=== PATIENT | male | born 1985 | race Caucasian/White ===

== ENCOUNTER 2016-11-19 15:15 | Emergency (ER) | payer OTHER ==
[~2016-11-19] VITALS: Ht 172.7 cm; Wt 81.6 kg
[~2016-11-19 15:15] MED LIST: 'PARAFON FORTE500 M1 PO; AMOXIL500 MG PO; DELTASONE20 MG PO; HYDROCODONE BIT1 T11 PO; IBU-8800 MG PO; KEFLEX500 MG PO; LEVOFLOXACIN500 MG PO; MEDROL DOSEPAK4 MG PO; NAPROSYN500 MG PO; PEPCID20 MG PO; PERCOCET 325 MG1 TA7 PO; TYLENOL W/CODEI1 TA2 PO; VICODIN ES 7501 TAB PO
[2016-11-19] MEDS ORDERED: ZUBSOLV 5.7-1.1 EACH SL (15:25)
[2016-11-19] MEDS ORDERED: CYCLOBENZAPRINE10 MG PO (17:08)
[2016-11-19] MEDS ORDERED: ZOFRAN ODT4 MG SL (17:14)
== END 2016-11-19 17:32 | disposition home or self-care (01) ==
LOC: ED 15:15
DX: S13.9XXA Sprain of joints and ligaments of unspecified parts of neck, initial encounter (principal); Z91.018 Allergy to other foods; Z79.899 Other long term (current) drug therapy; V89.2XXA Person injured in unspecified motor-vehicle accident, traffic, initial encounter; Y93.89 Activity, other specified; Y92.413 State road as the place of occurrence of the external cause; Y99.9 Unspecified external cause status

== ENCOUNTER → 2016-12-25 | Outpatient (CLI) | payer OTHER ==
[~2016-12-25] MED LIST changes: +CYCLOBENZAPRINE10 MG PO; +ZOFRAN ODT4 MG SL; +ZUBSOLV 5.7-1.1 EACH SL
[2016-12-25 10:55] LABS: BASO % 0.5 % (0.0-1.0); EOS # 0.1 10*3/uL (0.0-0.4); EOS % 1.9 % (1.0-4.0); HEMATOCRIT 45.1 % (42.0-52.0); HEMOGLOBIN 15.5 g/dl (14.0-18.0); LYMPH # 1.7 10*3/uL (1.3-4.4); LYMPH % 41.7 % (27.0-41.0); MEAN CELL VOLUME 82.3 fl (80.0-94.0); MEAN CORPUSCULAR HGB 28.3 pg (27.0-31.0); MEAN CORPUSCULAR HGB CONC 34.4 g/dl (33.0-37.0); MEAN PLATELET VOLUME 10.1 fl (9.6-12.3); MONO # 0.2 10*3/uL (0.1-1.0); MONO % 5.3 % (3.0-9.0); NEUT # 2.1 10*3/uL (2.3-7.9); NEUT % 50.4 % (47.0-73.0); PLATELET COUNT AUTOMATED 204 10*3/uL (130-400); RED BLOOD COUNT 5.48 10*6/uL (4.50-5.90); WHITE BLOOD COUNT 4.2 10*3/uL (4.8-10.8)
[2016-12-25 11:31] LABS: ALBUMIN 4.1 gm/dl (3.1-4.5); ALKALINE PHOSPHATASE 98 U/L (45-117); BILIRUBIN, DIRECT 0.1 mg/dL (0.0-0.2); BILIRUBIN, TOTAL 0.5 mg/dl (0.2-1.0); BUN 15 mg/dl (7-24); CARBON DIOXIDE 28 mmol/L (21-32); CHLORIDE 108 mmol/L (98-107); EST GLOM FILT AFRICAN AMERICAN > 60 ml/min; GLUCOSE 97 mg/dL (65-99); IRON 112 ug/dL (65-175); IRON SATURATION 35 %; POTASSIUM 3.8 mmol/L (3.5-5.1); SGOT/AST 70 IU/L (3-35); SGPT/ALT 99 U/L (12-78); SODIUM 141 mmol/L (136-145); TOTAL PROTEIN 7.8 gm/dL (6.4-8.2); UIBC 205 ug/dL (110-410)
[2016-12-26 07:05] LABS: HEPATITIS B SURFACE AB 006395 Reactive (.)
[2016-12-26 08:12] LABS: HIV 1+2 AB + HIV1 P24 AG Non Reactive (Non Reactive); TRANSFERRIN 004937 259 mg/dL (200-370)
[2016-12-26 21:09] LABS: HEPATITIS C QNT 1120000 IU/mL (.)
[2016-12-27 14:11] LABS: HCV REFLEX CHARGE CHG; HEPATITIS C GENOTYPE 2b (.)
== END | disposition home or self-care (01) ==
LOC: LAB 10:24
PROVIDERS: Physician Assistant
DX: K73.2 Chronic active hepatitis, not elsewhere classified (principal)

== ENCOUNTER 2020-05-26 05:56 | Observation (INO) | payer OTHER ==
[~2020-05-26] VITALS: Ht 172.7 cm; Wt 77.1 kg
[2020-05-26 06:00] VITALS: BP 143/80
[2020-05-26 06:31] LABS: BASO % 0.4 % (0.0-1.0); EOS # 0.1 10*3/uL (0.0-0.4); EOS % 1.8 % (1.0-4.0); HEMATOCRIT 46.6 % (42.0-52.0); LYMPH # 2.4 10*3/uL (1.3-4.4); LYMPH % 30.9 % (27.0-41.0); MEAN CELL VOLUME 82.2 fl (80.0-94.0); MEAN CORPUSCULAR HGB 27.7 pg (27.0-31.0); MEAN CORPUSCULAR HGB CONC 33.7 g/dl (33.0-37.0); MEAN PLATELET VOLUME 9.8 fl (9.6-12.3); MONO # 0.5 10*3/uL (0.1-1.0); MONO % 6.5 % (3.0-9.0); NEUT # 4.7 10*3/uL (2.3-7.9); NEUT % 60.1 % (47.0-73.0); PLATELET COUNT AUTOMATED 223 10*3/uL (130-400); RED BLOOD COUNT 5.67 10*6/uL (4.50-5.90); RED CELL DISTRI WIDTH 11.7 % (0-14.5); WHITE BLOOD COUNT 7.8 10*3/uL (4.8-10.8)
[2020-05-26 06:47] LABS: ALBUMIN 4.4 gm/dl (3.1-4.5); ALKALINE PHOSPHATASE 73 U/L (45-117); BUN 16 mg/dl (7-24); CHLORIDE 110 mmol/L (98-107); CREATININE 1.03 mg/dL (0.70-1.30); LIPASE 238 U/L (73-393); POTASSIUM 3.4 mmol/L (3.5-5.1); SGOT/AST 15 IU/L (3-35); SGPT/ALT 22 U/L (12-78); SODIUM 141 mmol/L (136-145); TOTAL PROTEIN 7.5 gm/dL (6.4-8.2)
[2020-05-26 08:57] VITALS: BP 114/86
[2020-05-26 11:51] VITALS: BP 123/68
[2020-05-26 20:00] VITALS: BP 115/66
[2020-05-27] VITALS: BP 115/73
[2020-05-27 06:49] LABS: ALBUMIN 3.5 gm/dl (3.1-4.5); ALKALINE PHOSPHATASE 71 U/L (45-117); BUN 10 mg/dl (7-24); CHLORIDE 108 mmol/L (98-107); CREATININE 0.93 mg/dL (0.70-1.30); POTASSIUM 4.2 mmol/L (3.5-5.1); SGOT/AST 35 IU/L (3-35); SGPT/ALT 29 U/L (12-78); SODIUM 139 mmol/L (136-145); TOTAL PROTEIN 6.7 gm/dL (6.4-8.2)
[2020-05-27 07:01] LABS: BASO % 0.2 % (0.0-1.0); EOS # 0.1 10*3/uL (0.0-0.4); HEMATOCRIT 43.7 % (42.0-52.0); LYMPH # 1.8 10*3/uL (1.3-4.4); LYMPH % 14.8 % (27.0-41.0); MEAN CELL VOLUME 83.6 fl (80.0-94.0); MEAN CORPUSCULAR HGB 28.1 pg (27.0-31.0); MEAN CORPUSCULAR HGB CONC 33.6 g/dl (33.0-37.0); MEAN PLATELET VOLUME 10.5 fl (9.6-12.3); MONO # 1.1 10*3/uL (0.1-1.0); MONO % 8.8 % (3.0-9.0); NEUT % 74.9 % (47.0-73.0); PLATELET COUNT AUTOMATED 196 10*3/uL (130-400); RED BLOOD COUNT 5.23 10*6/uL (4.50-5.90); RED CELL DISTRI WIDTH 11.8 % (0-14.5)
[2020-05-27 08:00] VITALS: BP 110/59
[2020-05-27 12:00] VITALS: BP 126/63
[2020-05-27 16:00] VITALS: BP 136/63
[2020-05-27 20:00] VITALS: BP 125/75
[2020-05-28] VITALS (8 sets, daily range): BP systolic 113–137; BP diastolic 66–82
[2020-05-28 06:43] LABS: BASO % 0.1 % (0.0-1.0); EOS # 0.1 10*3/uL (0.0-0.4); EOS % 0.8 % (1.0-4.0); HEMATOCRIT 42.3 % (42.0-52.0); LYMPH # 1.3 10*3/uL (1.3-4.4); LYMPH % 9.3 % (27.0-41.0); MEAN CELL VOLUME 84.4 fl (80.0-94.0); MEAN CORPUSCULAR HGB 28.5 pg (27.0-31.0); MEAN CORPUSCULAR HGB CONC 33.8 g/dl (33.0-37.0); MEAN PLATELET VOLUME 10.3 fl (9.6-12.3); MONO # 1.1 10*3/uL (0.1-1.0); MONO % 8.4 % (3.0-9.0); NEUT % 81.1 % (47.0-73.0); PLATELET COUNT AUTOMATED 175 10*3/uL (130-400); RED BLOOD COUNT 5.01 10*6/uL (4.50-5.90); RED CELL DISTRI WIDTH 11.9 % (0-14.5); WHITE BLOOD COUNT 13.5 10*3/uL (4.8-10.8)
[2020-05-28 06:59] LABS: ALBUMIN 3.2 gm/dl (3.1-4.5); ALKALINE PHOSPHATASE 76 U/L (45-117); BILIRUBIN, DIRECT 0.3 mg/dL (0.0-0.2); BUN 8 mg/dl (7-24); CHLORIDE 104 mmol/L (98-107); CREATININE 0.83 mg/dL (0.70-1.30); POTASSIUM 3.9 mmol/L (3.5-5.1); SGOT/AST 14 IU/L (3-35); SGPT/ALT 27 U/L (12-78); SODIUM 137 mmol/L (136-145)
[2020-05-28] MEDS ORDERED: FLAGYL500 MG PO (13:50)
[2020-05-28] MEDS ORDERED: CIPRO500 MG PO (13:50)
[2020-05-28] MEDS ORDERED: COLACE100 MG PO (13:51)
[2020-05-28] MEDS ORDERED: HYDROCODONE-AC1 EAC1 PO (13:53)
== END 2020-05-28 17:19 | disposition home or self-care (01) ==
LOC: ED 05:56 → EDHOLD 09:28 → 5E 16:34
PROVIDERS: Internal Medicine; Registered Nurse; ADMIT Family Medicine; ATTEND Family Medicine
DX: K81.0 Acute cholecystitis (principal); R11.2 Nausea with vomiting, unspecified; E87.6 Hypokalemia; E86.0 Dehydration; E87.8 Other disorders of electrolyte and fluid balance, not elsewhere classified; R73.9 Hyperglycemia, unspecified

== ENCOUNTER → 2021-06-27 | Outpatient (CLI) | payer OTHER ==
[~2021-06-27] MED LIST changes: +CIPRO500 MG PO; +COLACE100 MG PO; +FLAGYL500 MG PO; +HYDROCODONE-AC1 EAC1 PO
[2021-06-27 13:57] LABS: BASO # 0.1 10*3/uL (0.0-0.1); BASO % 0.9 % (0.0-1.0); EOS # 0.2 10*3/uL (0.0-0.4); HEMATOCRIT 49.7 % (42.0-52.0); LYMPH # 1.7 10*3/uL (1.3-4.4); LYMPH % 24.8 % (27.0-41.0); MEAN CELL VOLUME 85.2 fl (80.0-94.0); MEAN CORPUSCULAR HGB 29.3 pg (27.0-31.0); MEAN CORPUSCULAR HGB CONC 34.4 g/dl (33.0-37.0); MEAN PLATELET VOLUME 10.1 fl (9.6-12.3); MONO # 0.4 10*3/uL (0.1-1.0); MONO % 6.5 % (3.0-9.0); NEUT # 4.3 10*3/uL (2.3-7.9); NEUT % 64.6 % (47.0-73.0); PLATELET COUNT AUTOMATED 283 10*3/uL (130-400); RED BLOOD COUNT 5.83 10*6/uL (4.50-5.90); RED CELL DISTRI WIDTH 11.9 % (0-14.5); WHITE BLOOD COUNT 6.6 10*3/uL (4.8-10.8)
[2021-06-27 14:14] LABS: CHLORIDE 105 mmol/L (98-107); POTASSIUM 4.4 mmol/L (3.5-5.1); SODIUM 139 mmol/L (136-145)
[2021-06-27 14:28] LABS: ALBUMIN 4.1 gm/dl (3.1-4.5); ALKALINE PHOSPHATASE 56 U/L (45-117); BUN 14 mg/dl (7-24); CREATININE 1.36 mg/dL (0.70-1.30); SGOT/AST 19 IU/L (3-35); SGPT/ALT 29 U/L (12-78); TOTAL PROTEIN 7.4 gm/dL (6.4-8.2)
== END | disposition home or self-care (01) ==
LOC: LAB 13:36
PROVIDERS: ATTEND Nurse Practitioner Family
DX: K76.0 Fatty (change of) liver, not elsewhere classified (principal)

== ENCOUNTER 2022-10-28 15:43 | Emergency (ER) | payer BC ==
[~2022-10-28] VITALS: Ht 172.7 cm; Wt 90.7 kg
[2022-10-28] MEDS ORDERED: PREDNISONE50 MG PO (19:18)
[2022-10-28] MEDS ORDERED: MELOXICAM15 MG PO (19:28)
== END 2022-10-28 20:50 | disposition home or self-care (01) ==
LOC: ED 15:43
DX: M54.50 Low back pain, unspecified (principal); Z91.018 Allergy to other foods; Z98.890 Other specified postprocedural states; Z87.891 Personal history of nicotine dependence